=== PATIENT | female | born 1970 | race Caucasian/White ===

== ENCOUNTER → 2024-01-11 | Outpatient (CLI) | payer BC, SELFPAY ==
[2024-01-11 08:40] LABS: Glucose Estimated Average 131 mg/dL (80-131); Hemoglobin A1C 6.2 % Hgb (4.8-6.0)
[2024-01-11 08:58] LABS: Alanine Aminotransferase 22 U/L (10-49); Albumin/Globulin Ratio 2.3 (1.2-2.2); Alkaline Phosphatase 102 U/L (46-116); Anion Gap 8 (7-16); Aspartate Amino Transferase 21 U/L (0-34); BUN/Creatinine Ratio 17 Ratio (12-20); Bilirubin,Total 1.9 mg/dL (0.3-1.2); Blood Urea Nitrogen 15 mg/dL (9-23); Calcium 10.3 mg/dL (8.3-10.6); Calcium (Corrected) 10.3 mg/dL (8.5-10.1); Carbon Dioxide 29.5 mMol/L (20.0-31.0); Cardiac Risk Estimate 5.2 RATIO (3.7-5.6); Chloride 102 mMol/L (98-107); Cholesterol 209 mg/dL (132-200); Creatinine (Component) 0.9 mg/dL (0.6-1.3); Globulin 2.2 gm/dL (2.3-3.5); Glucose 132 mg/dL (74-106); HDL Cholesterol 40 mg/dL (40-60); LDL Cholesterol,Calculated 123 mg/dL (0-130); Osmolality,Calculated 280 (275-295); Potassium 4.1 mMol/L (3.4-5.1); Sodium 139 mMol/L (136-145); Total Protein 7.2 gm/dL (5.7-8.2); Triglycerides 230 mg/dL (30-150); eGFR > 60 See Note
[2024-01-11 09:44] LABS: Follicle Stimulating Hormone 61.81 mIU/mL (See Note)
[2024-01-24 06:39] LABS: ANA Screen, IFA NEGATIVE (NEGATIVE); DNA (ds) Antibody* <1 IU/mL; Estradiol, Free 0.41 pg/mL; Estradiol, Total 20 pg/mL; Luteinizing Hormone* 35.6 mIU/mL; Progesterone,LC/MS* <0.1 ng/mL
== END | disposition home or self-care (01) ==
LOC: COPL 07:14
PROVIDERS: PCP Internal Medicine; Referring Provider Internal Medicine; Visit Provider Internal Medicine
DX: I10 Essential (primary) hypertension (principal); E78.5 Hyperlipidemia, unspecified; E28.310 Symptomatic premature menopause
CPT/HCPCS: 36415; 80053; 80061; 82670; 82681; 83001; 83002; 83036; 84144; 86038; 86225

== ENCOUNTER → 2024-02-07 | Outpatient (CLI) | payer BC, SELFPAY ==
[2024-02-07 17:49] LABS: Sed Rate (ESR) 14 mm/hr (0-30)
[2024-02-07 17:56] LABS: Vitamin B12 405 pg/mL (211-911)
[2024-02-07 18:08] LABS: C-Reactive Protein < 0.4 mg/dL (0.0-0.9)
[2024-02-07 18:22] LABS: RA Screen Negative (Negative)
[2024-02-14 06:53] LABS: CCP Antibody (IgG)* <16 Units; HLA-B27 Antigen* NEGATIVE (NEGATIVE)
== END | disposition home or self-care (01) ==
LOC: COPL 16:47
PROVIDERS: PCP Internal Medicine; Referring Provider Internal Medicine; Visit Provider Internal Medicine
DX: I10 Essential (primary) hypertension (principal); K21.9 Gastro-esophageal reflux disease without esophagitis; M25.50 Pain in unspecified joint; M25.60 Stiffness of unspecified joint, not elsewhere classified; M79.18 Myalgia, other site; R51.9 Headache, unspecified; R53.83 Other fatigue
CPT/HCPCS: 36415; 82607; 85652; 86140; 86200; 86430; 86812

== ENCOUNTER 2024-04-14 10:55 | Day surgery (SDC) | payer BC, SELFPAY ==
[2024-04-14] VITALS (7 sets, daily range): BP systolic 111–155; BP diastolic 62–96; PULSE 83–108; RESP 15–20; TEMP 36.6–36.7; O2SAT 95–99; BMI 29.2
[2024-04-14] MEDS: BENZOCAINE 20% (Hurricaine) SPRAY 1 DOSE TOP (12:49)
[2024-04-14] MEDS: MEPERIDINE INJ 25 MG/ML VIAL (ASD USE ONLY) 50 MG IV (12:53)
[2024-04-14] MEDS: DiphenhydrAMINE INJ 50 MG/ML VIAL 25 MG IV (12:54)
[2024-04-14] MEDS: MIDAZOLAM INJ 1 MG/ML VIAL 2 ML (ASD USE ONLY) 2 MG IV (12:55)
[2024-04-14] MEDS: fentaNYL CIT INJ 50 mCg/ML AMP 2ML (ASD USE ONLY) IV (12:56)
[2024-04-14] MEDS: ONDANSETRON INJ 2 MG/ML INJ 2 ML 4 MG IV (12:57)
--- NOTE | 2024-04-14 16:25 | SUR.PHASEII ---
1307: Pt received for recovery. Report from Hayley NOEL. Pt groggy, but awake. Resp even, unlabored. VS stable. Denies pain. 1335: Pt more awake, alert. Sitting up tolerating po fluids with no difficulty swallowing and no n/v. 1350: Pt fully awake, oriented x3. Pt assisted to restroom. Ambulation steady. Pt and stated understanding of discharge instructions. Pt discharged from [facility] in stable condition.
== END 2024-04-14 13:50 | disposition home or self-care (01) ==
PROVIDERS: PCP Internal Medicine; Referring Provider Specialist; Visit Provider Specialist
PROC: (CPT 43239; principal; 2024-04-14 11:45)
DX: K21.00 Gastro-esophageal reflux disease with esophagitis, without bleeding (principal); K22.10 Ulcer of esophagus without bleeding; K29.71 Gastritis, unspecified, with bleeding; K31.89 Other diseases of stomach and duodenum; I10 Essential (primary) hypertension; Z79.899 Other long term (current) drug therapy
CPT/HCPCS: 43239; 81025; A4649; J1200; J2175; J2250; J2405; J3010; A9270

== ENCOUNTER → 2024-11-27 | Outpatient (CLI) | payer BC, SELFPAY ==
[2024-11-27 16:09] LABS: Basophils # (Auto) 0.0 Thou/mm3 (0.0-0.2); Basophils % (Auto) 1 % (0-2.5); Eosinophils # (Auto) 0.1 Thou/mm3 (0.0-0.5); Eosinophils % (Auto) 1 % (0-10); Hematocrit 41.5 % (36.0-46.0); Hemoglobin 13.8 g/dL (12.0-16.0); Immature Granulocytes Auto 0.06 Thou/mm3 (0.00-0.00); Lymphocytes # (Auto) 1.6 Thou/mm3 (1.0-4.8); Lymphocytes % (Auto) 19 % (10-50); Mean Corpuscular HGB Conc 33.3 g/dl (31.0-37.0); Mean Corpuscular Hemoglobin 32.7 pg (25.0-35.0); Mean Corpuscular Volume 98 fL (80-100); Monocytes # (Auto) 0.5 Thou/mm3 (0.0-0.8); Monocytes % (Auto) 6 % (0-12); Neutrophils # (Auto) 6.1 Thou/mm3 (1.8-7.7); Neutrophils % (Auto) 73 % (37-80); Nucleated Red Blood Cell # 0.00 Thou/mm3 (0.00-0.00); Nucleated Red Blood Cell % 0 /100 WBC (0); Platelet Count 295 Thou/mm3 (140-440); RDW Standard Deviation 45.1 fL (36.4-46.3); Red Blood Count 4.22 Miln/mm3 (4.00-5.20); White Blood Count 8.4 Thou/mm3 (3.6-11.0)
[2024-11-27 16:27] LABS: Alanine Aminotransferase 16 U/L (10-49); Albumin, Serum 4.4 gm/dL (3.5-5.0); Albumin/Globulin Ratio 2.0 (1.2-2.2); Alkaline Phosphatase 93 U/L (46-116); Anion Gap 10 (7-16); Aspartate Amino Transferase 15 U/L (0-34); BUN/Creatinine Ratio 11 Ratio (12-20); Bilirubin,Total 1.1 mg/dL (0.3-1.2); Blood Urea Nitrogen 10 mg/dL (9-23); C-Reactive Protein < 0.5 mg/dL (0.0-0.9); Calcium 9.5 mg/dL (8.3-10.6); Calcium (Corrected) 9.5 mg/dL (8.5-10.1); Carbon Dioxide 29.2 mMol/L (20.0-31.0); Chloride 106 mMol/L (98-107); Creatinine (Component) 0.9 mg/dL (0.6-1.3); Globulin 2.2 gm/dL (2.3-3.5); Glucose 141 mg/dL (74-106); Osmolality,Calculated 289 (275-295); Potassium 4.6 mMol/L (3.4-5.1); Sodium 145 mMol/L (136-145); Total Protein 6.6 gm/dL (5.7-8.2); eGFR > 60 See Note
[2024-11-27 16:42] LABS: Sed Rate (ESR) 4 mm/hr (0-30)
== END | disposition home or self-care (01) ==
LOC: COPL 14:51
PROVIDERS: PCP Internal Medicine; Referring Provider Internal Medicine; Visit Provider Internal Medicine
DX: I10 Essential (primary) hypertension (principal); K21.9 Gastro-esophageal reflux disease without esophagitis; L20.89 Other atopic dermatitis; M06.00 Rheumatoid arthritis without rheumatoid factor, unspecified site; M25.50 Pain in unspecified joint; M79.18 Myalgia, other site; R51.9 Headache, unspecified; R53.83 Other fatigue; Z79.899 Other long term (current) drug therapy; Z98.1 Arthrodesis status; M25.60 Stiffness of unspecified joint, not elsewhere classified
CPT/HCPCS: 36415; 80053; 85025; 85652; 86140